=== PATIENT | male | born 2005 | race Caucasian/White ===

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

== ENCOUNTER 2024-02-04 16:08 | Emergency (ER) | payer BC ==
[2024-02-04 16:41] VITALS: BP 158/93; PULSE 117
[2024-02-04] MEDS: HYDROmorphone 0.5 MG/0.5 ML Syringe IVPUSH ONE (17:12)
[2024-02-04] MEDS: Ondansetron 4 MG/2 ML SDV IVPUSH ONE (17:12)
[2024-02-04] MEDS: Sodium Chloride 0.9% 1,000 ML IV STA (17:12)
[2024-02-04] MEDS: Sodium Chloride 0.9% 10 ML Syringe FLUSH ONE (17:17)
[2024-02-04] MEDS: Meclizine 25 MG Tab PO ONE (17:18)
[2024-02-04 17:27] LABS: BASOPHILS PERCENT AUTO 0.4 % (0.0-1.0); EOSINOPHILS ABSOLUTE AUTO 0.1 K/mm3 (0.0-0.4); EOSINOPHILS PERCENT AUTO 0.9 % (0.0-6.0); HEMOGLOBIN 15.2 gm/dl (14.0-18.0); IMMATURE GRAN ABSOLUTE AUTO 0.04 K/mm3 (0.00-0.05); IMMATURE GRAN PERCENT AUTO 0.4 % (0.0-0.4); LYMPHOCYTES ABSOLUTE AUTO 0.4 K/mm3 (1.0-4.8); LYMPHOCYTES PERCENT AUTO 3.9 % (24.0-44.0); MEAN CORPUSCULAR HEMOGLOBIN 23.2 pg (28.0-32.0); MEAN CORPUSCULAR VOLUME 74.8 fl (83.0-99.0); MEAN PLATELET VOLUME 10.2 fl (9.4-12.4); MONOCYTES ABSOLUTE AUTO 0.5 K/mm3 (0.0-0.8); MONOCYTES PERCENT AUTO 4.7 % (0.0-8.0); NEUTROPHILS ABSOLUTE AUTO 10.1 K/mm3 (1.8-7.7); NEUTROPHILS PERCENT AUTO 89.7 % (41.0-71.0); PLATELET COUNT,PLT 261 K/mm3 (150-400); RED BLOOD CELL COUNT 6.55 M/mm3 (4.52-5.90); WHITE BLOOD CELL COUNT,WBC 11.27 K/mm3 (3.9-11.3)
[2024-02-04 17:27] LABS: APPEARANCE,URINE CLEAR (Clear); BILIRUBIN,URINE NEGATIVE (Negative); COLOR,URINE YELLOW (Yellow); GLUCOSE,URINE NEGATIVE (Negative); KETONES,URINE 1+ (Negative); LEUKOCYTE ESTERASE,URINE NEGATIVE (Negative); NITRITE,URINE NEGATIVE (Negative); OCCULT BLOOD,URINE TRACE-INTACT (Negative); PROTEIN,URINE 2+ (Negative); UROBILINOGEN,URINE 0.2 (0.2-1.0)
[2024-02-04] MEDS: Iopamidol 612 MG/ML 100 ML Bottle IVPUSH ONE (17:36)
[2024-02-04] MEDS: Sodium Chloride 0.9% 10 ML Syringe FLUSH PRN (17:37)
[2024-02-04 17:45] LABS: A/G RATIO 0.8 (1-2); ALBUMIN 3.8 g/dl (3.4-5.0); ANION GAP 14.9 (5-15); BACTERIA,URINE FEW /hpf (FEW); BILIRUBIN TOTAL 0.6 mg/dL (0.2-1.0); BUN/CREATININE RATIO 12.7 (14-18); CALCIUM 9.3 mg/dL (8.5-10.1); CREATININE 1.1 mg/dL (0.7-1.3); EST CRCL DRUG DOSING (CG) 103.64 mL/min; MAGNESIUM 1.5 mg/dL (1.8-2.4); POTASSIUM,K 3.9 mEq/L (3.5-5.1); PROTEIN TOTAL,TP 8.7 g/dl (6.4-8.2); RBC,URINE 0-5 /hpf (0-5); SQUAMOUS EPITHELIAL CELLS,UR 0-5 /hpf (0-5); WBC,URINE 0-5 /hpf (0-5)
[2024-02-04 17:46] LABS: MUCUS,URINE FEW /hpf (FEW)
== END 2024-02-04 18:25 | disposition home or self-care (01) ==
LOC: JD.ED 16:08
DX: A08.4 Viral intestinal infection, unspecified (principal); E11.9 Type 2 diabetes mellitus without complications; E66.9 Obesity, unspecified; Z68.39 Body mass index [BMI] 39.0-39.9, adult; Z86.16 Personal history of COVID-19; Z79.899 Other long term (current) drug therapy; Z79.84 Long term (current) use of oral hypoglycemic drugs
CPT/HCPCS: 36415; 70450; 70450-26; 74177; 74177-26; 80053; 81001; 83735; 85025; 96361; 96374; 96375; 99283; 99284-25; A9270-GY; J1171; J2405; J7030; Q9967

== ENCOUNTER 2024-04-26 19:24 | Emergency (ER) | payer BC ==
[2024-04-26] MEDS ORDERED: Sodium Chloride 0.9% 10 ML Syringe FLUSH PRN (20:02)
[2024-04-26 20:32] LABS: BASOPHILS ABSOLUTE AUTO 0.1 K/mm3 (0.0-0.2); BASOPHILS PERCENT AUTO 1.1 % (0.0-1.0); EOSINOPHILS ABSOLUTE AUTO 0.1 K/mm3 (0.0-0.4); EOSINOPHILS PERCENT AUTO 1.4 % (0.0-6.0); HEMATOCRIT 47.4 % (42.0-52.0); HEMOGLOBIN 14.5 gm/dl (14.0-18.0); IMMATURE GRAN ABSOLUTE AUTO 0.03 K/mm3 (0.00-0.05); IMMATURE GRAN PERCENT AUTO 0.5 % (0.0-0.4); LYMPHOCYTES PERCENT AUTO 15.9 % (24.0-44.0); MEAN CORPUSCULAR HEMOGLOBIN 23.4 pg (28.0-32.0); MEAN CORPUSCULAR HGB CONC 30.6 g/dl (32.0-36.0); MEAN CORPUSCULAR VOLUME 76.6 fl (83.0-99.0); MEAN PLATELET VOLUME 10.1 fl (9.4-12.4); MONOCYTES ABSOLUTE AUTO 0.7 K/mm3 (0.0-0.8); MONOCYTES PERCENT AUTO 11.3 % (0.0-8.0); NEUTROPHILS ABSOLUTE AUTO 4.5 K/mm3 (1.8-7.7); NEUTROPHILS PERCENT AUTO 69.8 % (41.0-71.0); PLATELET COUNT,PLT 221 K/mm3 (150-400); RED BLOOD CELL COUNT 6.19 M/mm3 (4.52-5.90); WHITE BLOOD CELL COUNT,WBC 6.48 K/mm3 (3.9-11.3)
[2024-04-26 20:32] LABS: CORONAVIRUS COVID-19 NAA NEGATIVE (NEGATIVE); INFLUENZA A NAA POSITIVE (NEGATIVE); RESPIRATORY SYNCYTIAL VIR NAA NEGATIVE (NEGATIVE)
[2024-04-26 20:58] LABS: LACTIC ACID 1.1 mmol/L (0.4-2.0)
[2024-04-26 21:01] LABS: A/G RATIO 0.8 (1-2); ANION GAP 12.7 (5-15); BILIRUBIN TOTAL 0.3 mg/dL (0.2-1.0); BUN/CREATININE RATIO 6.7 (14-18); CALCIUM 9.8 mg/dL (8.5-10.1); CREATININE 1.2 mg/dL (0.7-1.3); EST CRCL DRUG DOSING (CG) 88.61 mL/min; POTASSIUM,K 3.7 mEq/L (3.5-5.1)
[2024-04-26 22:42] VITALS: BP 161/95; PULSE 102
== END 2024-04-26 22:41 | disposition home or self-care (01) ==
LOC: JD.ED 19:24
DX: J10.1 Influenza due to other identified influenza virus with other respiratory manifestations (principal); E78.00 Pure hypercholesterolemia, unspecified; E11.9 Type 2 diabetes mellitus without complications; Z79.899 Other long term (current) drug therapy; Z79.51 Long term (current) use of inhaled steroids; Z86.16 Personal history of COVID-19
CPT/HCPCS: 0241U; 36415; 71045; 71045-26; 80053; 83605; 83880; 84484; 85025; 85379; 87040; 93005; 93010; 99284; 99285

== ENCOUNTER 2024-08-27 18:18 | Emergency (ER) | payer BC ==
[2024-08-27 19:09] VITALS: BP 179/108; PULSE 77
[2024-08-27] MEDS: Lidocaine 1% 10 ML MDV INJECT ONE (19:21)
== END 2024-08-27 20:31 | disposition home or self-care (01) ==
LOC: JD.ED 18:18
DX: S61.411A Laceration without foreign body of right hand, initial encounter (principal); E11.9 Type 2 diabetes mellitus without complications; E66.9 Obesity, unspecified; Z79.84 Long term (current) use of oral hypoglycemic drugs; Z86.16 Personal history of COVID-19; Z68.41 Body mass index [BMI] 40.0-44.9, adult; X58.XXXA Exposure to other specified factors, initial encounter
CPT/HCPCS: 12001; 99282; J2003; 99283

== ENCOUNTER 2024-09-29 10:38 | Emergency (ER) | payer BC ==
[2024-09-29 11:10] LABS: BASOPHILS ABSOLUTE AUTO 0.1 K/mm3 (0.0-0.2); BASOPHILS PERCENT AUTO 0.5 % (0.0-1.0); EOSINOPHILS ABSOLUTE AUTO 0.3 K/mm3 (0.0-0.4); EOSINOPHILS PERCENT AUTO 2.2 % (0.0-6.0); IMMATURE GRAN ABSOLUTE AUTO 0.04 K/mm3 (0.00-0.05); IMMATURE GRAN PERCENT AUTO 0.4 % (0.0-0.4); LYMPHOCYTES ABSOLUTE AUTO 1.4 K/mm3 (1.0-4.8); LYMPHOCYTES PERCENT AUTO 12.8 % (24.0-44.0); MEAN PLATELET VOLUME 10.3 fl (9.4-12.4); MONOCYTES ABSOLUTE AUTO 0.9 K/mm3 (0.0-0.8); MONOCYTES PERCENT AUTO 8.0 % (0.0-8.0); NEUTROPHILS ABSOLUTE AUTO 8.6 K/mm3 (1.8-7.7); NEUTROPHILS PERCENT AUTO 76.1 % (41.0-71.0); NRBC ABSOLUTE 0.00 (0.00-0.02); NRBC PERCENT 0.0 % (0.0-0.2); PLATELET COUNT,PLT 211 K/mm3 (150-400); RED BLOOD CELL COUNT 5.86 M/mm3 (4.52-5.90); WHITE BLOOD CELL COUNT,WBC 11.26 K/mm3 (3.9-11.3)
[2024-09-29] MEDS: Iopamidol 612 MG/ML 100 ML Bottle IVPUSH ONE (11:18)
[2024-09-29] MEDS: Sodium Chloride 0.9% 10 ML Syringe FLUSH ONE (11:18)
[2024-09-29 11:31] LABS: A/G RATIO 0.9 (1-2); ALANINE AMINOTRANSFERASE,ALT 52 U/L (16-63); ASPARTATE AMNIOTRANSFERASE,AST 31 U/L (15-37); BILIRUBIN TOTAL 0.5 mg/dL (0.2-1.0); BLOOD UREA NITROGEN,BUN 11 mg/dL (7-18); CARBON DIOXIDE,CO2 27 mEq/L (21-32); CHLORIDE,CL 105 mEq/L (98-107); CREATINE KINASE,CK 176 U/L (39-308); CREATININE 0.9 mg/dL (0.7-1.3); ESTIMATED GFR 125 mL/min (>60); GLUCOSE RANDOM 120 mg/dL (70-99); POTASSIUM,K 3.8 mEq/L (3.5-5.1); PROTEIN TOTAL,TP 7.9 g/dl (6.4-8.2); SODIUM,NA 140 mEq/L (136-145)
[2024-09-29 11:32] LABS: ETHANOL BLOOD MEDICAL 0.00 gm% (0.00)
[2024-09-29] MEDS: Ketorolac 30 MG/ML SDV IVPUSH ONE (11:53)
[2024-09-29] MEDS: Ondansetron 4 MG/2 ML SDV IVPUSH ONE (11:54)
[2024-09-29 14:05] VITALS: BP 136/85; PULSE 71
== END 2024-09-29 13:30 | disposition home or self-care (01) ==
LOC: JD.ED 10:38
DX: S00.83XA Contusion of other part of head, initial encounter (principal); S60.512A Abrasion of left hand, initial encounter; S50.312A Abrasion of left elbow, initial encounter; Q60.0 Renal agenesis, unilateral; M25.571 Pain in right ankle and joints of right foot; E11.9 Type 2 diabetes mellitus without complications; E66.9 Obesity, unspecified; Z79.84 Long term (current) use of oral hypoglycemic drugs; Z86.16 Personal history of COVID-19; V29.408A Other motorcycle driver injured in collision with unspecified motor vehicles in traffic accident, initial encounter
CPT/HCPCS: 36415; 70450; 71260; 74177; 80053; 80307; 82550; 83690; 83735; 85025; 96374; 96375; 99284; A9270; J1885; J2405; J7030; Q9967